=== PATIENT | female | born 1940 | race Caucasian/White ===

== ENCOUNTER → 2022-05-17 | Outpatient (CLI) | payer MEDICARE ==
[~2022-05-17] MED LIST: ATORVASTATIN CA40 M1 PO; DAILY VALUE1 EACH PO; ELIQUIS5 M1 PO; LEADER ASPIRIN325 MG PO; LISINOPRIL5 MG PO; METHIMAZOLE5 M1 PO; METOPROLOL SUC100 M1 PO; METOPROLOL SUCC50 M1 PO; ZESTRIL20 MG PO
[2022-05-17 14:27] LABS: BUN 23 mg/dl (7-24); CHLORIDE 105 mmol/L (98-107); CREATININE 1.16 mg/dL (0.55-1.02); FREE T4 1.89 ng/dl (0.76-1.46); POTASSIUM 2.9 mmol/L (3.5-5.1); SODIUM 143 mmol/L (136-145)
[2022-05-17 14:33] LABS: THYROID STIM HORMONE (HS) < 0.005 uIU/ml (0.358-4.75)
[2022-05-17 14:52] LABS: VITAMIN D, 25-HYDROXY 48.7 ng/mL (30-100)
== END | disposition home or self-care (01) ==
LOC: LAB 13:48
PROVIDERS: ATTEND Internal Medicine Endocrinology, Diabetes & Metabolism
DX: E05.20 Thyrotoxicosis with toxic multinodular goiter without thyrotoxic crisis or storm (principal); R79.89 Other specified abnormal findings of blood chemistry; E55.9 Vitamin D deficiency, unspecified

== ENCOUNTER → 2023-06-19 | Outpatient (CLI) | payer MEDICARE ==
[~2023-06-19] MED LIST changes: +ASPIRIN ADULT L81 M2 PO; +ATORVASTATIN CA80 M1 PO; +FUROSEMIDE40 MG PO; +HYDRALAZINE HYD50 MG PO; +IMDUR SA30 MG PO; +LISINOPRIL20 MG PO; +Synthroid,Levo88 MCG PO; +XARE20MG PO
== END | disposition home or self-care (01) ==
LOC: RESCLI 01:52
PROVIDERS: ATTEND Internal Medicine
DX: I49.1 Atrial premature depolarization (principal); I10 Essential (primary) hypertension; E03.9 Hypothyroidism, unspecified; Z98.890 Other specified postprocedural states; Z79.01 Long term (current) use of anticoagulants; Z79.899 Other long term (current) drug therapy

== ENCOUNTER → 2023-09-24 | Day surgery (SDC) | payer MEDICARE ==
[~2023-09-24] VITALS: Ht 162.5 cm; Wt 65.8 kg
[~2023-09-24] MED LIST changes: +K-TAB20 MEQ PO; +MAGNESIUM ELEM300 MG PO
[2023-09-24 12:30] VITALS: BP 204/96
[2023-09-24 13:50] VITALS: BP 167/91; BP 190/73
[2023-09-24 14:05] VITALS: BP 167/91
[2023-09-24 14:20] VITALS: BP 143/72
== END | disposition home or self-care (01) ==
LOC: SDC 09-22 12:30
PROVIDERS: ATTEND Ophthalmology
DX: H25.11 Age-related nuclear cataract, right eye (principal); I10 Essential (primary) hypertension; I25.2 Old myocardial infarction; I48.91 Unspecified atrial fibrillation; E89.0 Postprocedural hypothyroidism; Z98.890 Other specified postprocedural states

== ENCOUNTER 2023-10-01 14:21 | Emergency (ER) | payer MEDICARE ==
[~2023-10-01] VITALS: Wt 68.0 kg
[2023-10-01 15:44] LABS: BASO # 0.1 10*3/uL (0.0-0.1); BASO % 0.9 % (0.0-1.0); EOS # 0.2 10*3/uL (0.0-0.4); EOS % 2.4 % (1.0-4.0); HEMATOCRIT 41.4 % (37.0-47.0); LYMPH # 1.3 10*3/uL (1.3-4.4); LYMPH % 13.3 % (27.0-41.0); MEAN CORPUSCULAR HGB 29.7 pg (27.0-31.0); MEAN CORPUSCULAR HGB CONC 32.6 g/dl (33.0-37.0); MEAN PLATELET VOLUME 12.5 fl (9.6-12.3); MONO # 0.8 10*3/uL (0.1-1.0); MONO % 7.7 % (3.0-9.0); NEUT # 7.5 10*3/uL (2.3-7.9); NEUT % 75.5 % (47.0-73.0); PLATELET COUNT AUTOMATED 186 10*3/uL (130-400); RED BLOOD COUNT 4.55 10*6/uL (4.10-5.10); RED CELL DISTRI WIDTH 14.9 % (0-14.5)
[2023-10-01 16:16] LABS: POTASSIUM 2.9 mmol/L (3.4-5.1); TOTAL PROTEIN 6.6 gm/dL (6.0-8.0)
== END 2023-10-01 16:31 | disposition home or self-care (01) ==
LOC: ED 14:21
PROVIDERS: Nurse Practitioner Family
DX: E87.6 Hypokalemia (principal); I48.91 Unspecified atrial fibrillation; E78.5 Hyperlipidemia, unspecified; I10 Essential (primary) hypertension; I25.2 Old myocardial infarction; E05.90 Thyrotoxicosis, unspecified without thyrotoxic crisis or storm; Z90.710 Acquired absence of both cervix and uterus; Z98.51 Tubal ligation status; Z98.890 Other specified postprocedural states; F17.200 Nicotine dependence, unspecified, uncomplicated

== ENCOUNTER 2023-10-13 19:51 | Inpatient (IN) | payer MEDICARE ==
[~2023-10-13] VITALS: Ht 160 cm; Wt 70.5 kg
[2023-10-13 20:14] LABS: BASO # 0.1 10*3/uL (0.0-0.1); BASO % 0.8 % (0.0-1.0); EOS % 0.3 % (1.0-4.0); HEMATOCRIT 41.2 % (37.0-47.0); LYMPH # 0.3 10*3/uL (1.3-4.4); LYMPH % 2.5 % (27.0-41.0); MEAN CELL VOLUME 91.8 fl (81.0-99.0); MEAN CORPUSCULAR HGB 29.4 pg (27.0-31.0); MEAN PLATELET VOLUME 12.5 fl (9.6-12.3); MONO # 0.7 10*3/uL (0.1-1.0); MONO % 6.8 % (3.0-9.0); NEUT # 9.5 10*3/uL (2.3-7.9); NEUT % 89.3 % (47.0-73.0); PLATELET COUNT AUTOMATED 162 10*3/uL (130-400); RED BLOOD COUNT 4.49 10*6/uL (4.10-5.10); RED CELL DISTRI WIDTH 15.1 % (0-14.5); WHITE BLOOD COUNT 10.7 10*3/uL (4.8-10.8)
[2023-10-13 20:25] LABS: ACT PARTIAL THROMBO TIME 37.9 SECONDS (20.0-32.1)
[2023-10-13 20:35] LABS: POTASSIUM 2.8 mmol/L (3.4-5.1); TOTAL PROTEIN 7.1 gm/dL (6.0-8.0)
[2023-10-13 21:21] VITALS: BP 166/80
[2023-10-13] MEDS ORDERED: ATORVASTATIN CA40 M1 PO (23:16)
[2023-10-14] VITALS (7 sets, daily range): BP systolic 127–187; BP diastolic 61–156
[2023-10-14 03:10] LABS: HEMATOCRIT 39.8 % (37.0-47.0); MEAN CELL VOLUME 92.6 fl (81.0-99.0); MEAN CORPUSCULAR HGB 29.3 pg (27.0-31.0); MEAN CORPUSCULAR HGB CONC 31.7 g/dl (33.0-37.0); MEAN PLATELET VOLUME 12.5 fl (9.6-12.3); PLATELET COUNT AUTOMATED 148 10*3/uL (130-400); RED CELL DISTRI WIDTH 15.3 % (0-14.5); WHITE BLOOD COUNT 7.2 10*3/uL (4.8-10.8)
[2023-10-14 03:23] LABS: MANUAL DIFF REFLEX YES
[2023-10-14 03:37] LABS: POTASSIUM 3.1 mmol/L (3.4-5.1); TOTAL PROTEIN 6.8 gm/dL (6.0-8.0)
[2023-10-14 03:59] LABS: PLATELET SUFFICIENCY NORMAL (NORMAL); TOTAL CELLS COUNTED 100 #CELLS
[2023-10-15] VITALS: BP 145/68
[2023-10-15 06:09] LABS: POTASSIUM 3.3 mmol/L (3.4-5.1); TOTAL PROTEIN 6.1 gm/dL (6.0-8.0)
[2023-10-15 08:00] VITALS: BP 150/76
[2023-10-15 12:00] VITALS: BP 159/72
[2023-10-15 20:00] VITALS: BP 127/64
[2023-10-16] VITALS: BP 122/62
[2023-10-16 08:00] VITALS: BP 130/78
[2023-10-16 08:46] LABS: HEMATOCRIT 39.3 % (37.0-47.0); MEAN CELL VOLUME 92.7 fl (81.0-99.0); MEAN CORPUSCULAR HGB 29.5 pg (27.0-31.0); MEAN CORPUSCULAR HGB CONC 31.8 g/dl (33.0-37.0); PLATELET COUNT AUTOMATED 191 10*3/uL (130-400); RED BLOOD COUNT 4.24 10*6/uL (4.10-5.10); RED CELL DISTRI WIDTH 15.5 % (0-14.5); WHITE BLOOD COUNT 16.3 10*3/uL (4.8-10.8)
[2023-10-16 08:47] LABS: MANUAL DIFF REFLEX YES
[2023-10-16 09:02] LABS: POTASSIUM 3.6 mmol/L (3.4-5.1)
[2023-10-16 09:14] LABS: PLATELET SUFFICIENCY NORMAL (NORMAL); POLYCHROMASIA SLIGHT; TOTAL CELLS COUNTED 100 #CELLS; TOXIC GRANULATION SLIGHT; VACUOLATION OF NEUTROPHILS SLIGHT
[2023-10-16 09:15] LABS: BURR CELLS MODERATE; OVALOCYTES FEW
[2023-10-16 12:00] VITALS: BP 112/54
[2023-10-17] MEDS ORDERED: PREDNISONE50 MG PO (14:08)
[2023-10-17] MEDS ORDERED: Ipratropium Brom3 ML INH (14:08)
[2023-10-17] MEDS ORDERED: PROAIR DIGIHAL90 MCG INH (14:08)
[2023-10-17] MEDS ORDERED: AEROECLIPSE II1 EACH MC (14:08)
== END 2023-10-16 18:20 | disposition home or self-care (01) | DRG 280 ==
LOC: ED 19:51 → 4E 22:31 → EDHOLD 22:31 → 4E 10-14 14:23
PROVIDERS: Family Medicine; Nurse Practitioner Family; Student in an Organized Health Care Education/Training Program; ADMIT Internal Medicine; ATTEND Internal Medicine
DX: I13.0 Hypertensive heart and chronic kidney disease with heart failure and stage 1 through stage 4 chronic kidney disease, or unspecified chronic kidney disease (principal); I21.4 Non-ST elevation (NSTEMI) myocardial infarction; I50.33 Acute on chronic diastolic (congestive) heart failure; J96.01 Acute respiratory failure with hypoxia; N17.0 Acute kidney failure with tubular necrosis; D68.59 Other primary thrombophilia; Z66 Do not resuscitate; E78.5 Hyperlipidemia, unspecified; J43.2 Centrilobular emphysema; I27.21 Secondary pulmonary arterial hypertension; R73.9 Hyperglycemia, unspecified; E05.90 Thyrotoxicosis, unspecified without thyrotoxic crisis or storm; N18.32 Chronic kidney disease, stage 3b; E87.6 Hypokalemia; E80.6 Other disorders of bilirubin metabolism; I48.0 Paroxysmal atrial fibrillation; E04.2 Nontoxic multinodular goiter; Z86.79 Personal history of other diseases of the circulatory system; Z98.51 Tubal ligation status; Z90.710 Acquired absence of both cervix and uterus; Z82.49 Family history of ischemic heart disease and other diseases of the circulatory system; Z83.6 Family history of other diseases of the respiratory system; I25.2 Old myocardial infarction; Z51.5 Encounter for palliative care

== ENCOUNTER → 2023-10-22 | Day surgery (SDC) | payer MEDICARE ==
[~2023-10-22] VITALS: Ht 162.5 cm; Wt 65.8 kg
[~2023-10-22] MED LIST changes: +AEROECLIPSE II1 EACH MC; +Ipratropium Brom3 ML INH; +PREDNISONE50 MG PO; +PROAIR DIGIHAL90 MCG INH
[2023-10-22 18:10] LABS: BASO % 0.3 % (0.0-1.0); EOS % 0.1 % (1.0-4.0); HEMATOCRIT 38.8 % (37.0-47.0); LYMPH # 1.3 10*3/uL (1.3-4.4); LYMPH % 11.8 % (27.0-41.0); MEAN CELL VOLUME 92.6 fl (81.0-99.0); MEAN CORPUSCULAR HGB 28.9 pg (27.0-31.0); MEAN CORPUSCULAR HGB CONC 31.2 g/dl (33.0-37.0); MEAN PLATELET VOLUME 13.1 fl (9.6-12.3); MONO # 0.6 10*3/uL (0.1-1.0); MONO % 5.5 % (3.0-9.0); NEUT # 8.9 10*3/uL (2.3-7.9); NEUT % 80.5 % (47.0-73.0); PLATELET COUNT AUTOMATED 211 10*3/uL (130-400); RED BLOOD COUNT 4.19 10*6/uL (4.10-5.10); RED CELL DISTRI WIDTH 15.6 % (0-14.5); WHITE BLOOD COUNT 11.1 10*3/uL (4.8-10.8)
[2023-10-22 18:25] LABS: POTASSIUM 3.4 mmol/L (3.4-5.1); TOTAL PROTEIN 6.3 gm/dL (6.0-8.0)
== END | disposition home or self-care (01) ==
LOC: SDC 10-17 11:00
PROVIDERS: Student in an Organized Health Care Education/Training Program; ATTEND Ophthalmology
DX: D72.829 Elevated white blood cell count, unspecified (principal); I13.0 Hypertensive heart and chronic kidney disease with heart failure and stage 1 through stage 4 chronic kidney disease, or unspecified chronic kidney disease; I50.9 Heart failure, unspecified; N18.32 Chronic kidney disease, stage 3b; J44.9 Chronic obstructive pulmonary disease, unspecified; I48.91 Unspecified atrial fibrillation; Z90.710 Acquired absence of both cervix and uterus; Z98.51 Tubal ligation status; Z79.899 Other long term (current) drug therapy; Z53.8 Procedure and treatment not carried out for other reasons

== ENCOUNTER → 2024-02-18 | Day surgery (SDC) | payer MEDICARE ==
[~2024-02-18] VITALS: Ht 162.5 cm; Wt 65.8 kg
[~2024-02-18] MED LIST changes: +ATROPINE SULFATE 1% 2 ML BOTTLE ONE; +ATROPINE SULFATE 1% 2 ML BOTTLE OPH SCH; +Balanced Salt Solution 500 ML OPH SCH; +Cefuroxime Sodium 5 MG in BALANCED SALT IRRIG SOLN NO.2 0.5 ML,SYRINGE, DISPOSABLE, 10 ... IO SCH; +Cyclopentolate Hydrochloride 1% 2 ML BOTTLE OPH SCH; +Midazolam Hydrochloride 2 MG/2 ML VIAL IV ONE; +OFLOXACIN 0.3% 5 ML BOTTLE ONE; +OFLOXACIN 0.3% 5 ML BOTTLE OPH SCH; +PHENYLEPHRINE/KETOROLAC 4 ML in Balanced Salt Solution 500 ML OPH SCH; +POVIDONE IODINE 5% OPHTHALMIC 30 ML BOTTLE OPH ONE; +POVIDONE IODINE 5% OPHTHALMIC 30 ML BOTTLE OPH SCH; +Phenylephrine Hydrochloride 2 ML BOT OPH ONE; +Phenylephrine Hydrochloride 2 ML BOT OPH SCH; +Proparacaine Hydrochloride 15 ML BOT OPH ONE; +Proparacaine Hydrochloride 15 ML BOT OPH SCH; +SODIUM CHLORIDE 0.9% 1,000 ML IV SCH; +TROPICAMIDE 3 ML BOT OPH ONE; +TROPICAMIDE 3 ML BOT OPH SCH; +TRYPAN BLUE 0.5 ML SYR INTRAOC ONE; +TRYPAN BLUE 0.5 ML SYR INTRAOC SCH; +Tetracaine Hydrochloride 0.5% 4 ML BOT OPH ONE; +Tetracaine Hydrochloride 0.5% 4 ML BOT OPH SCH; +prednisoLONE acetate 1% OPHTHALMIC 5 ML BOT OPH ONE; +prednisoLONE acetate 1% OPHTHALMIC 5 ML BOT OPH SCH
[2024-02-18 10:14] VITALS: BP 190/101
[2024-02-18 11:09] VITALS: BP 177/69
[2024-02-18 11:24] VITALS: BP 183/77
[2024-02-18 11:38] VITALS: BP 169/71
== END | disposition home or self-care (01) ==
LOC: SDC 02-13 14:00
PROVIDERS: ATTEND Ophthalmology
DX: H25.12 Age-related nuclear cataract, left eye (principal); I13.0 Hypertensive heart and chronic kidney disease with heart failure and stage 1 through stage 4 chronic kidney disease, or unspecified chronic kidney disease; N18.9 Chronic kidney disease, unspecified; I50.9 Heart failure, unspecified; I48.91 Unspecified atrial fibrillation; I25.2 Old myocardial infarction; J44.1 Chronic obstructive pulmonary disease with (acute) exacerbation; E78.5 Hyperlipidemia, unspecified; E05.90 Thyrotoxicosis, unspecified without thyrotoxic crisis or storm; Z90.89 Acquired absence of other organs; Z90.710 Acquired absence of both cervix and uterus; Z98.41 Cataract extraction status, right eye; Z98.890 Other specified postprocedural states; Z79.82 Long term (current) use of aspirin; Z79.899 Other long term (current) drug therapy